=== PATIENT | male | born 1980 ===

== ENCOUNTER → 2025-08-10 15:45 | Outpatient (REF) | payer OTHER, SELFPAY | LOC: RAD 15:45 | PROVIDERS: ATTENDING PHYSICIAN Internal Medicine | DX: M25.561 Pain in right knee (principal) | CPT/HCPCS: 73560 ==

== ENCOUNTER → 2025-08-25 13:00 | Outpatient (REF) | payer OTHER, SELFPAY | LOC: MRI 3T 13:00 | PROVIDERS: ATTENDING PHYSICIAN Internal Medicine | DX: M25.561 Pain in right knee (principal) | CPT/HCPCS: 73721 ==